=== PATIENT | female | born 1995 | race Two or more races ===

== ENCOUNTER 2017-02-06 23:54 | Emergency (ER) | payer OTHER ==
[~2017-02-06] VITALS: Ht 170.2 cm; Wt 70.2 kg
[2017-02-07] MEDS ORDERED: CETI10CA PO (00:40)
[2017-02-07] MEDS ORDERED: PHEN177L2 PO (00:41)
[2017-02-07] MEDS ORDERED: GUAI-103 PO (00:42)
[2017-02-07] MEDS ORDERED: FLUT9.9S NAS (00:43)
[2017-02-07 01:32] VITALS: BP 119/74
== END 2017-02-07 01:33 | disposition home or self-care (01) ==
LOC: ED 02-07 01:27
DX: J20.8 Acute bronchitis due to other specified organisms (principal); B97.89 Other viral agents as the cause of diseases classified elsewhere; J01.10 Acute frontal sinusitis, unspecified
CPT/HCPCS: 71020; 99284